=== PATIENT | male | born 1955 | race Caucasian/White ===

== ENCOUNTER 2020-08-24 10:51 | Emergency (ER) | payer BC ==
[2020-08-25 08:07] LABS: SARS-CoV-2 NAA Not Detected (Not Detected)
== END 2020-08-24 11:24 | disposition home or self-care (01) ==
LOC: JVIRT 10:51
DX: Z20.822 Contact with and (suspected) exposure to COVID-19 (principal)
CPT/HCPCS: C9803; G2251-GT; Q3014-GT; U0003; U0005